=== PATIENT | female | born 1980 | race Caucasian/White ===

== ENCOUNTER 2017-08-15 09:49 | Emergency (ER) | payer MEDICARE, OTHER ==
[2017-08-15 10:03] VITALS: RESP 18
--- NOTE | 2017-08-15 10:19 | ED ---
General Adult HPI - General Chief complaint: Extremity Injury, Lower Stated complaint: left foot pain; lump Time Seen by Provider: 08/15/17 10:08 Source: family, RN notes reviewed Mode of arrival: wheelchair Limitations: language barrier, altered mental status, physical limitation - History of Present Illness Initial comments: Patient's 37-year-old female significant past medical history for Angelman syndrome, presenting with a billing spec for possible injury to the left foot. Adjunct Political Science Instructor provides history as patient is nonverbal. Adjunct Political Science Instructor states that they were getting her change this morning and change in brief and when she stood up the left foot seemed to buckle and she says "ow". Adjunct Political Science Instructor states that she noticed a bump to the left side of the foot unsure if this is related. They deny any other complaints or symptoms. Denies any other change in behavior. He denies any recent fever, nausea vomiting, diarrhea. - Related Data Home Medications Medication Instructions Recorded Confirmed Acetaminophen [Tylenol] 1,000 mg PO Q8H PRN 01/15/15 08/15/17 Calcium Carbonate/Vitamin D3 1 tab PO HS@199901/15/15 08/15/17 [Calcium 600 + Vit D Tablet] Cetirizine HCl 10 mg PO DAILY@0800 01/15/15 08/15/17 Divalproex Sodium [Depakote 500 mg PO TID 01/15/15 08/15/17 Sprinkle] Fluticasone Nasal [place] [Flonase 1 spray EA NOSTRIL DAILY PRN 01/15/15 08/15/17 Nasal [place]] LORazepam [Ativan] 0.5 mg PO TID PRN 01/15/15 08/15/17 Certavite Senior Vitamin 1 tab PO DAILY@0800 02/04/17 08/15/17 Levothyroxine Sodium [Synthroid] 50 mcg PO DAILY@0800 02/04/17 08/15/17 Melatonin 3 mg PO HS@199902/04/17 08/15/17 Norgestimate-Ethinyl Estradiol 1 tab PO HS@199902/04/17 08/15/17 [Tri-Sprintec Tablet] Allergies Allergy/AdvReac Type Severity Reaction Status Date / Time pets Allergy Mild Unknown Uncoded 08/15/17 10:03 Review of Systems ROS Statement: Those systems with pertinent positive or pertinent negative responses have been documented in the HPI. ROS Other: All systems not noted in ROS Statement are negative. Past Medical History Past Medical History: Seizure Disorder Additional Past Medical History / Comment(s): excessive salivation,Angelman Syndrome-petit mal seizures last seizure approx 5 yrs ago-special needs, nonverbal,ambulatory,steroids w/in 3 mos,scoliosis History of Any Multi-Drug Resistant Organisms: None Reported Past Surgical History: Back Surgery Additional Past Surgical History / Comment(s): 2 rods in back,wisdom teeth Past Anesthesia/Blood Transfusion Reactions: No Reported Reaction Past Psychological History: Bipolar Smoking Status: Never smoker Past Alcohol Use History: None Reported Past Drug Use History: None Reported - Past Family History Father Family Medical History: Myocardial Infarction ([place]), Osteoarthritis (OA) Additional Family Medical History / Comment(s): [place] X2,HEART STENTS Mother Additional Family Medical History / Comment(s): SCOLIOSIS General Exam - General Exam Comments Initial Comments: General: The patient is awake and alert, in no distress, and does not appear acutely ill. Neck: The neck is supple, there is no tenderness or JVD. Musculoskeletal: Normal appearance of left foot no obvious deformity. Patient shows full range of motion. Pedal pulses 2+ bilaterally. No specific bony tenderness on exam. Skin: Skin is warm and dry and no rashes or lesions are noted. Limitations: language barrier, altered mental status, physical limitation Course Vital Signs 08/15/17 09:57 Temperature 97.6 F Pulse Rate 86 Respiratory 18 Rate Blood Pressure 100/73 O2 Sat by Pulse 97 Oximetry Medical Decision Making - Medical Decision Making Patient's x-ray of the left foot reviewed and does show a periosteal reaction of the proximal second metatarsal most common related to stress reaction/ incomplete stress fracture. MRI could be performed for further evaluation and a nonemergent basis as read by radiologist . Case discussed in detail with attending physician Dr. Gibson. Patient able to bear weight here in emergency room. Did discuss these findings with caregiver at bedside and advised to follow-up with the family doctor over the next 2 days. Advised to use Sebastián wrap during the day with ibuprofen for pain.. Disposition Clinical Impression: Foot pain Disposition: HOME SELF-CARE Condition: Good Instructions: Foot Sprain (ED) Additional Instructions: Please follow-up with family physician of days. Please use Sebastián wrap during the day. Please use ibuprofen for pain as needed. Please return to emergency room if the symptoms increase or worsen or for any other concerns. Is patient prescribed a controlled substance at d/c from ED?: No Referrals: Surjit Centeno MD [Primary Care Provider] - 1-2 days Time of Disposition: 11:39
--- NOTE | 2017-08-15 11:01 | XR ---
EXAMINATION TYPE: XR foot complete LT DATE OF EXAM: 08/15/2017 CLINICAL HISTORY: Left foot pain TECHNIQUE: Frontal, lateral, and oblique images of the left foot are obtained. COMPARISON: None FINDINGS: There is no U dislocation evident in the left foot. Periosteal reaction is noted of the pr oximal diaphysis and metaphysis of the second digit laterally. This typically relates to stress react ion/stress fracture The joint spaces in the left foot appear within normal limits. The overlying sof t tissue appears unremarkable. IMPRESSION: Periosteal reaction of the proximal second metatarsal most commonly related to stress regan ction/incomplete stress fracture. MR could be performed for further evaluation and a nonemergent harleen alexis
[2017-08-15 11:52] VITALS: BP 103/70; PULSE 82; TEMP 97
== END 2017-08-15 11:52 | disposition home or self-care (01) ==
LOC: EC 09:49 → EEVIPCON 09:49 → EC 11:52
DX: M79.672 Pain in left foot (principal); G40.909 Epilepsy, unspecified, not intractable, without status epilepticus; F31.9 Bipolar disorder, unspecified; Z79.899 Other long term (current) drug therapy; Z91.09 Other allergy status, other than to drugs and biological substances
CPT/HCPCS: 99283

== ENCOUNTER 2017-09-04 17:05 | Emergency (ER) | payer MEDICARE, OTHER ==
[2017-09-04 17:35] VITALS: PULSE 62; RESP 20; TEMP 98
--- NOTE | 2017-09-04 19:23 | XR ---
EXAMINATION TYPE: XR pelvis AP view DATE OF EXAM: 09/04/2017 COMPARISON: NONE HISTORY: Hip pain TECHNIQUE: Single view FINDINGS: The pelvic ring is intact. Proximal femurs and hip joints are intact. There is no sign of h ip dysplasia. Sacroiliac joints are intact. IMPRESSION: Negative pelvis exam.
--- NOTE | 2017-09-04 19:24 | XR ---
EXAMINATION TYPE: XR knee limited bilateral DATE OF EXAM: 09/04/2017 COMPARISON: NONE HISTORY: Leg pain TECHNIQUE: 4 views FINDINGS: There is no fracture nor dislocation. Joint spaces are fairly normal. There is no sign of j oint effusion. There is soft tissue swelling anterior to the knee joint on the lateral view. IMPRESSION: Anterior soft tissue swelling. No fracture.
--- NOTE | 2017-09-04 19:53 | ED ---
Extremity Problem HPI - General Chief complaint: Extremity Problem,Nontraumatic Stated complaint: Right Leg Pain Time Seen by Provider: 09/04/17 18:20 Source: family, Caregiver Mode of arrival: wheelchair Limitations: no limitations - History of Present Illness Initial comments: This is a 37-year-old female with Angelman syndrome and past medical history of seizures and previous KENDALL who was brought in today by caretakers from nursing home for rash to the right anterior thigh. History was obtained from caretakers who state that she attends a day program, and today they were in the sun all day at a picnic. When they went to go change her brief when she returned they noticed a rash to the right anterior thigh, and during ambulation they thought she was slightly favoring her left leg but it was hard to tell. He thought it might be related to the rash they saw. So they took her to [facility] around 3:30 PM where she was told to come to the emergency department for possible imaging. The patient arrived via wheelchair is her normal mode of ambulation when she is not at her nursing home where she ambulates on her knees. At arrival her vital signs within normal limits. Her takers deny any change in behavior or mental status, evidence of diaphoresis, or vomiting. Unable to obtain history or review of systems from patient as she is nonverbal due to her Angelman syndrome. - Related Data Home Medications Medication Instructions Recorded Confirmed Acetaminophen [Tylenol] 1,000 mg PO Q8H PRN 01/15/15 08/15/17 Calcium Carbonate/Vitamin D3 1 tab PO HS@199901/15/15 08/15/17 [Calcium 600 + Vit D Tablet] Cetirizine HCl 10 mg PO DAILY@0801/15/15 08/15/17 Divalproex Sodium [Depakote 500 mg PO TID 01/15/15 08/15/17 Sprinkle] Fluticasone Nasal [place] [Flonase 1 spray EA NOSTRIL DAILY PRN 01/15/15 08/15/17 Nasal [place]] LORazepam [Ativan] 0.5 mg PO TID PRN 01/15/15 08/15/17 Certavite Senior Vitamin 1 tab PO DAILY@0802/04/17 08/15/17 Levothyroxine Sodium [Synthroid] 50 mcg PO DAILY@0802/04/17 08/15/17 Melatonin 3 mg PO HS@199902/04/17 08/15/17 Norgestimate-Ethinyl Estradiol 1 tab PO HS@199902/04/17 08/15/17 [Tri-Sprintec Tablet] Allergies Allergy/AdvReac Type Severity Reaction Status Date / Time ibuprofen Allergy Unknown Verified 09/04/17 17:36 lithium Allergy Unknown Verified 09/04/17 17:36 naproxen [From Aleve] Allergy Unknown Verified 09/04/17 17:36 olanzapine [From Zyprexa] Allergy Unknown Verified 09/04/17 17:36 pets Allergy Mild Unknown Uncoded 09/04/17 17:35 Review of Systems ROS Statement: Those systems with pertinent positive or pertinent negative responses have been documented in the HPI. ROS Other: All systems not noted in ROS Statement are negative. Past Medical History Past Medical History: Seizure Disorder Additional Past Medical History / Comment(s): excessive salivation,Angelman Syndrome-petit mal seizures last seizure approx 5 yrs ago-special needs, nonverbal,ambulatory,steroids w/in 3 mos,scoliosis History of Any Multi-Drug Resistant Organisms: None Reported Past Surgical History: Back Surgery Additional Past Surgical History / Comment(s): 2 rods in back,wisdom teeth Past Anesthesia/Blood Transfusion Reactions: No Reported Reaction Past Psychological History: Bipolar Smoking Status: Never smoker Past Alcohol Use History: None Reported Past Drug Use History: None Reported - Past Family History Father Family Medical History: Myocardial Infarction ([place]), Osteoarthritis (OA) Additional Family Medical History / Comment(s): [place] X2,HEART STENTS Mother Additional Family Medical History / Comment(s): SCOLIOSIS General Exam Limitations: no limitations Course Vital Signs 09/04/17 17:30 Temperature 98.0 F Pulse Rate 62 Respiratory 20 Rate O2 Sat by Pulse 97 Oximetry Medical Decision Making - Medical Decision Making This is a 37-year-old female with Angelman syndrome and past medical history of seizures and previous KENDALL who was brought in today by caretakers from nursing home for rash to the right anterior thigh. History was obtained from caretakers who state that she attends a day program, and today they were in the sun all day at a picnic. When they went to go change her brief when she returned they noticed a rash to the right anterior thigh, and during ambulation they thought she was slightly favoring her left leg but it was hard to tell. He thought it might be related to the rash they saw. So they took her to [facility] around 3:30 PM where she was told to come to the emergency department for possible imaging. The patient arrived via wheelchair is her normal mode of ambulation when she is not at her nursing home where she ambulates on her knees. At arrival her vital signs within normal limits. Her takers deny any change in behavior or mental status, evidence of diaphoresis, or vomiting. Unable to obtain history or review of systems from patient as she is nonverbal due to her Angelman syndrome. Patient was able to ambulate from the wheelchair to the bed putting weight on both feet without signs of discomfort. Physical examination there is a large reticular rash to the right anterior thigh, the rash is not warm to touch. There is no evidence of vesicles or draining. She is afebrile. There is reddening of the skin of the upper extremities bilaterally this appears to be sun burn-mentioned that she had been the sun all day. Physical examination of the hips knees and ankles revealed no evidence of erythema, swelling or obvious deformities of the overlying skin, patient did not show signs of pain to palpation of the hips knees and ankles bilaterally. Patient had full range of motion of hips knees and ankles bilaterally. Patient was able to bear weight and ambulate from the wheel chair to bed. X-rays of the pelvis and knees bilaterally were obtained due to caretakers mentioning that they thought she was slightly favoring the left leg-imaging returned without abnormalities. Patient was seen by attending Dr. Bates. The daughter is appropriate given the patient's stable condition she follow-up with her primary care 1-2 days if symptoms don't resolve and return to emergency department if they worsen. Caretakers agree with this plan and patient was discharged in stable condition, ambulating without difficulty stretcher to wheelchair upon discharge. Disposition Clinical Impression: Rash and nonspecific skin eruption Narrative: Please follow-up with family doctor in the next 2 days of symptoms have not improved. Please return to emergency room if the symptoms increase or worsen or for any other concerns. Disposition: HOME SELF-CARE Condition: Good Instructions: Acute Rash (ED) Additional Instructions: Please follow-up with family doctor in the next 2 days of symptoms have not improved. Please return to emergency room if the symptoms increase or worsen or for any other concerns. Is patient prescribed a controlled substance at d/c from ED?: No Referrals: Surjit Centeno MD [Primary Care Provider] - 1-2 days
== END 2017-09-04 20:07 | disposition home or self-care (01) ==
LOC: EC 17:05
DX: R21 Rash and other nonspecific skin eruption (principal); G40.409 Other generalized epilepsy and epileptic syndromes, not intractable, without status epilepticus; F31.9 Bipolar disorder, unspecified; Z79.899 Other long term (current) drug therapy; Z79.3 Long term (current) use of hormonal contraceptives; Z88.6 Allergy status to analgesic agent; Z91.09 Other allergy status, other than to drugs and biological substances; Z88.8 Allergy status to other drugs, medicaments and biological substances
CPT/HCPCS: 72170; 99283

== ENCOUNTER 2019-07-22 20:31 | Emergency (ER) | payer MEDICARE, OTHER ==
[2019-07-22 20:38] VITALS: TEMP 97.9
--- NOTE | 2019-07-22 21:57 | ED ---
Seizure HPI - General Chief Complaint: Seizure Stated Complaint: seizure Time Seen by Provider: 07/22/19 21:32 Source: EMS, Caregiver Mode of arrival: EMS Limitations: altered mental status, physical limitation - History of Present Illness Initial Comments: Patient is a 39-year-old female with history of epilepsy presenting to the emergency department with a chief complaint of a seizure. Patient presents to the ED via EMS with caregiver. Patient is nonverbal and lives in assisted living facility. Caregiver states the patient typically shakes her head back and forth at baseline, however today she was shaking the morning usual and then also she went "stiff". They had to bring her down to the ground and afterwards she felt tired. Caregiver stated the patient possibly suffered a second seizure with similar symptoms. Patient did have fatigue afterward. They're unsure whether the patient urinated herself. There is no signs of tonic-clonic activity. Caregiver states her last seizure was approximately 6 years ago. She does see a neurologist but has not seen one recently. Patient has been eating without issue but she does have poor liquid intake. - Related Data Home Medications Medication Instructions Recorded Confirmed Acetaminophen [Tylenol] 1,000 mg PO Q8H PRN 01/15/15 08/15/17 Calcium Carbonate/Vitamin D3 1 tab PO HS@199901/15/15 08/15/17 [Calcium 600 + Vit D Tablet] Cetirizine HCl 10 mg PO DAILY@0800 01/15/15 08/15/17 Divalproex Sodium [Depakote 500 mg PO TID 01/15/15 08/15/17 Sprinkle] Fluticasone Nasal [place] [Flonase 1 spray EA NOSTRIL DAILY PRN 01/15/15 08/15/17 Nasal [place]] LORazepam [Ativan] 0.5 mg PO TID PRN 01/15/15 08/15/17 Certavite Senior Vitamin 1 tab PO DAILY@0800 02/04/17 08/15/17 Levothyroxine Sodium [Synthroid] 50 mcg PO DAILY@0800 02/04/17 08/15/17 Melatonin 3 mg PO HS@199902/04/17 08/15/17 Norgestimate-Ethinyl Estradiol 1 tab PO HS@199902/04/17 08/15/17 [Tri-Sprintec Tablet] Allergies Allergy/AdvReac Type Severity Reaction Status Date / Time ibuprofen Allergy Unknown Verified 07/22/19 20:37 lithium Allergy Unknown Verified 07/22/19 20:37 naproxen [From Aleve] Allergy Unknown Verified 07/22/19 20:37 olanzapine [From Zyprexa] Allergy Unknown Verified 07/22/19 20:37 pets Allergy Mild Unknown Uncoded 07/22/19 20:37 Review of Systems ROS Statement: Those systems with pertinent positive or pertinent negative responses have been documented in the HPI. ROS Other: All systems not noted in ROS Statement are negative. Past Medical History Past Medical History: Seizure Disorder Additional Past Medical History / Comment(s): excessive salivation,Angelman Syndrome-petit mal seizures last seizure approx 5 yrs ago-special needs,nonverbal,ambulatory,steroids w/in 3 mos,scoliosis History of Any Multi-Drug Resistant Organisms: None Reported Past Surgical History: Back Surgery Additional Past Surgical History / Comment(s): 2 rods in back,wisdom teeth Past Anesthesia/Blood Transfusion Reactions: No Reported Reaction Past Psychological History: Bipolar Smoking Status: Never smoker Past Alcohol Use History: None Reported Past Drug Use History: None Reported - Past Family History Father Family Medical History: Myocardial Infarction ([place]), Osteoarthritis (OA) Additional Family Medical History / Comment(s): [place] X2,HEART STENTS Mother Additional Family Medical History / Comment(s): SCOLIOSIS General Exam Limitations: altered mental status, physical limitation General appearance: alert, in no apparent distress Head exam: Present: atraumatic, normocephalic, normal inspection Eye exam: Present: normal appearance, PERRL, EOMI Pupils: Present: normal accommodation ENT exam: Present: normal exam, normal oropharynx (no tongue trauma ), mucous membranes moist Neck exam: Present: normal inspection, full ROM Respiratory exam: Present: normal lung sounds bilaterally Cardiovascular Exam: Present: regular rate, normal rhythm, normal heart sounds Extremities exam: Present: normal inspection, full ROM Back exam: Present: normal inspection, full ROM Neurological exam: Present: alert Psychiatric exam: Present: other (Nonverbal) Skin exam: Present: warm, dry, intact, normal color Course Vital Signs 07/22/19 07/22/19 07/22/19 20:33 22:30 23:00 Temperature 97.9 F Pulse Rate 78 88 78 Respiratory 18 20 16 Rate Blood Pressure 107/81 110/56 111/65 O2 Sat by Pulse 95 99 98 Oximetry Medical Decision Making - Medical Decision Making Patient is a 39-year-old female presents emergency Department with a chief complaint of possible seizure. Patient is nonverbal brought to the ED via EMS. She is accompanied by her caregiver. Patient currently takes Depakote for her epilepsy. She has not had a seizure in about 6 years according to the caregiver. CBC and CMP are unremarkable aside from elevated BUN levels which I suspect is secondary to dehydration. She does have dry mucous membranes and according to the caregiver, the patient does have poor liquid intake. Patient was given a liter of fluids.. Lactate is within normal limits. EKG shows normal sinus rhythm with no ST changes. Depakote levels are within normal limits. I have low suspicion that this was a true seizure. No signs of oral trauma to the lateral aspect of the tongue. CT of the brain is unremarkable. Return parameters were thoroughly discussed with caregiver is understanding and agreeable. She was advised to follow-up with the primary care. Case discussed with physician. - Lab Data Result diagrams: 07/22/19 22:20 07/22/19 22:20 Lab Results 07/22/19 07/22/19 07/22/19 Range/Units 22:20 22:20 22:20 WBC 5.9 (3.8-10.6) k/uL RBC 4.26 (3.80-5.40) m/uL Hgb 13.4 (11.4-16.0) gm/dL Hct 42.5 (34.0-46.0) % MCV 99.9 (80.0-100.0) fL MCH 31.5 (25.0-35.0) pg MCHC 31.5 (31.0-37.0) g/dL RDW 12.8 (11.5-15.5) % Plt Count 168 (150-450) k/uL Neutrophils % 41 % Lymphocytes % 47 % Monocytes % 6 % Eosinophils % 4 % Basophils % 0 % Neutrophils # 2.4 (1.3-7.7) k/uL Lymphocytes # 2.8 (1.0-4.8) k/uL Monocytes # 0.4 (0-1.0) k/uL Eosinophils # 0.2 (0-0.7) k/uL Basophils # 0.0 (0-0.2) k/uL Sodium 134 L (137-145) mmol/L Potassium 4.6 (3.5-5.1) mmol/L Chloride 100 (98-107) mmol/L Carbon Dioxide 30 (22-30) mmol/L Anion Gap 4 mmol/L BUN 30 H (7-17) mg/dL Creatinine 0.70 (0.52-1.04) mg/dL Est GFR (CKD-EPI)AfAm >90 (>60 ml/min/1.73 sqM) Est GFR (CKD-EPI)NonAf >90 (>60 ml/min/1.73 sqM) Glucose 104 H (74-99) mg/dL POC Glucose (mg/dL) (75-99) mg/dL POC Glu Marketing Content Specialist ID Plasma Lactic Acid Alvaro 1.1 (0.7-2.0) mmol/L Calcium 9.1 (8.4-10.2) mg/dL Magnesium 1.7 (1.6-2.3) mg/dL Total Bilirubin 0.5 (0.2-1.3) mg/dL AST 37 H (14-36) U/L ALT 17 (4-34) U/L Alkaline Phosphatase 43 (38-126) U/L Total Protein 6.3 (6.3-8.2) g/dL Albumin 3.2 L (3.5-5.0) g/dL Valproic Acid ug/mL [place] mmol/L 07/22/19 07/22/19 07/22/19 Range/Units 22:20 22:20 22:25 WBC (3.8-10.6) k/uL RBC (3.80-5.40) m/uL Hgb (11.4-16.0) gm/dL Hct (34.0-46.0) % MCV (80.0-100.0) fL MCH (25.0-35.0) pg MCHC (31.0-37.0) g/dL RDW (11.5-15.5) % Plt Count (150-450) k/uL Neutrophils % % Lymphocytes % % Monocytes % % Eosinophils % % Basophils % % Neutrophils # (1.3-7.7) k/uL Lymphocytes # (1.0-4.8) k/uL Monocytes # (0-1.0) k/uL Eosinophils # (0-0.7) k/uL Basophils # (0-0.2) k/uL Sodium (137-145) mmol/L Potassium (3.5-5.1) mmol/L Chloride (98-107) mmol/L Carbon Dioxide (22-30) mmol/L Anion Gap mmol/L BUN (7-17) mg/dL Creatinine (0.52-1.04) mg/dL Est GFR (CKD-EPI)AfAm (>60 ml/min/1.73 sqM) Est GFR (CKD-EPI)NonAf (>60 ml/min/1.73 sqM) Glucose (74-99) mg/dL POC Glucose (mg/dL) 96 (75-99) mg/dL POC Glu Marketing Content Specialist ID Abdon Mustafa Plasma Lactic Acid Alvaro (0.7-2.0) mmol/L Calcium (8.4-10.2) mg/dL Magnesium (1.6-2.3) mg/dL Total Bilirubin (0.2-1.3) mg/dL AST (14-36) U/L ALT (4-34) U/L Alkaline Phosphatase (38-126) U/L Total Protein (6.3-8.2) g/dL Albumin (3.5-5.0) g/dL Valproic Acid 104.8 ug/mL [place] <0.2 mmol/L Disposition Clinical Impression: Observed seizure-like activity Disposition: HOME SELF-CARE Condition: Good Instructions (If sedation given, give patient instructions): Recurrent Seizures in Adults (ED) Additional Instructions: Follow-up with a neurologist. Return to emergency department if symptoms worsen. Is patient prescribed a controlled substance at d/c from ED?: No Referrals: Surjit Centeno MD [Primary Care Provider] - 1-2 days Time of Disposition: 00:24
[2019-07-22 22:26] LABS: Glucose,Whole Blood 96 mg/dL (75-99)
[2019-07-22 22:37] LABS: Basophils % (A) 0 %; Eosinophils # (A) 0.2 k/uL (0-0.7); Eosinophils % (A) 4 %; HCT 42.5 % (34.0-46.0); HGB 13.4 gm/dL (11.4-16.0); Lymphocytes # (A) 2.8 k/uL (1.0-4.8); Lymphocytes % (A) 47 %; MCH 31.5 pg (25.0-35.0); MCHC 31.5 g/dL (31.0-37.0); MCV 99.9 fL (80.0-100.0); Mean Platelet Volume 7.1; Monocytes # (A) 0.4 k/uL (0-1.0); Monocytes % (A) 6 %; Neutrophils # (A) 2.4 k/uL (1.3-7.7); Neutrophils % (A) 41 %; Platelet Count 168 k/uL (150-450); RBC 4.26 m/uL (3.80-5.40); RDW 12.8 % (11.5-15.5); WBC 5.9 k/uL (3.8-10.6)
[2019-07-22 22:44] LABS: ALT 17 U/L (4-34); AST 37 U/L (14-36); African American GFR (CKD) >90 (>60 ml/min/1.73 sqM); Albumin 3.2 g/dL (3.5-5.0); Alkaline Phosphatase 43 U/L (38-126); Anion Gap 4 mmol/L; Blood Urea Nitrogen 30 mg/dL (7-17); Calcium 9.1 mg/dL (8.4-10.2); Carbon Dioxide 30 mmol/L (22-30); Chloride 100 mmol/L (98-107); Glucose 104 mg/dL (74-99); Magnesium 1.7 mg/dL (1.6-2.3); Non-African American GFR(CKD) >90 (>60 ml/min/1.73 sqM); Potassium 4.6 mmol/L (3.5-5.1); Sodium 134 mmol/L (137-145); Total Bilirubin 0.5 mg/dL (0.2-1.3); Total Protein 6.3 g/dL (6.3-8.2)
--- NOTE | 2019-07-22 22:45 | CT ---
EXAMINATION TYPE: CT brain wo con DATE OF EXAM: 07/22/2019 COMPARISON: 11/04/2011 HISTORY: seizure CT DLP: 1275.4 mGycm Automated exposure control for dose reduction was used. Ventricles are top normal in size. There is no mass effect nor midline shift. There is no sign of int racranial hemorrhage. The calvarium is intact. IMPRESSION: No acute intracranial abnormality. No change.
[2019-07-22] MEDS ORDERED: SODIUM CHLORIDE 0.9% 1,000 ML IV STA (22:57)
[2019-07-23 01:29] VITALS: BP 108/56; PULSE 81; RESP 20
== END 2019-07-23 01:15 | disposition home or self-care (01) ==
LOC: EC 20:31
DX: G40.802 Other epilepsy, not intractable, without status epilepticus (principal); F31.9 Bipolar disorder, unspecified; R79.89 Other specified abnormal findings of blood chemistry; E86.0 Dehydration; Z79.3 Long term (current) use of hormonal contraceptives; Z79.899 Other long term (current) drug therapy; Z88.6 Allergy status to analgesic agent; Z88.8 Allergy status to other drugs, medicaments and biological substances; Z91.048 Other nonmedicinal substance allergy status
CPT/HCPCS: 36415; 70450; 80053; 80164; 80178; 83605; 83735; 85025; 93005; 96360; 99285

== ENCOUNTER 2022-06-07 16:59 | Emergency (ER) | payer MEDICARE, OTHER ==
[2022-06-07 17:15] VITALS: RESP 20; TEMP 97.4
--- NOTE | 2022-06-07 17:29 | ED ---
General Adult HPI - General Chief complaint: ENT Stated complaint: Food Stuck in Throat Time Seen by Provider: 06/07/22 17:00 Source: EMS, RN notes reviewed, old records reviewed, Caregiver Mode of arrival: EMS Limitations: altered mental status - History of Present Illness Initial comments: This is a 42-year-old female who presents to the emergency room via EMS with her caregiver who states that around 4:30 today patient was eating spaghetti O's with meatballs and choked on a meatball. Caregiver states that they tried the Heimlich maneuver but were unable to expel meatball. No loss of consciousness. No apparent respiratory distress at this time. Patient did turn red in color, did not vomit. 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 Patient is nonverbal at baseline. -: hour(s) (1) Location: neck (throat) - Related Data Home Medications Medication Instructions Recorded Confirmed Acetaminophen [Tylenol] 1,000 mg PO Q8H PRN 01/15/15 08/15/17 Calcium Carbonate/Vitamin D3 1 tab PO HS@199901/15/15 08/15/17 [Calcium 600 + Vit D Tablet] Cetirizine HCl 10 mg PO DAILY@0800 01/15/15 08/15/17 Divalproex Sodium [Depakote 500 mg PO TID 01/15/15 08/15/17 Sprinkle] Fluticasone Nasal [place] [Flonase 1 spray EA NOSTRIL DAILY PRN 01/15/15 08/15/17 Nasal [place]] LORazepam [Ativan] 0.5 mg PO TID PRN 01/15/15 08/15/17 Certavite Senior Vitamin 1 tab PO DAILY@0800 02/04/17 08/15/17 Levothyroxine Sodium [Synthroid] 50 mcg PO DAILY@79902/04/17 08/15/17 Melatonin 3 mg PO HS@199902/04/17 08/15/17 norgestimate-ethinyl estradioL 1 tab PO HS@199902/04/17 08/15/17 [Tri-Sprintec Tablet] Allergies Allergy/AdvReac Type Severity Reaction Status Date / Time ibuprofen Allergy Unknown Verified 07/22/19 20:37 lithium Allergy Unknown Verified 07/22/19 20:37 naproxen [From Aleve] Allergy Unknown Verified 07/22/19 20:37 olanzapine [From Zyprexa] Allergy Unknown Verified 07/22/19 20:37 pets Allergy Mild Unknown Uncoded 07/22/19 20:37 Review of Systems ROS Statement: Those systems with pertinent positive or pertinent negative responses have been documented in the HPI. ROS Other: All systems not noted in ROS Statement are negative. Past Medical History Past Medical History: Unable to Obtain, Seizure Disorder Additional Past Medical History / Comment(s): excessive salivation,Angelman Syndrome-petit mal seizures last seizure approx 5 yrs ago-special needs,nonverbal,ambulatory,steroids w/in 3 mos,scoliosis History of Any Multi-Drug Resistant Organisms: None Reported Past Surgical History: Back Surgery Additional Past Surgical History / Comment(s): 2 rods in back,wisdom teeth Past Anesthesia/Blood Transfusion Reactions: No Reported Reaction Past Psychological History: Bipolar Past Alcohol Use History: None Reported Past Drug Use History: None Reported - Past Family History Father Family Medical History: Myocardial Infarction (RI), Osteoarthritis (OA) Additional Family Medical History / Comment(s): RI X2,HEART STENTS Mother Additional Family Medical History / Comment(s): SCOLIOSIS General Exam Limitations: altered mental status General appearance: alert, in no apparent distress Head exam: Present: atraumatic Eye exam: Absent: scleral icterus, conjunctival injection, periorbital swelling ENT exam: Present: normal oropharynx, mucous membranes moist Neck exam: Absent: tenderness, meningismus Respiratory exam: Present: normal lung sounds bilaterally. Absent: respiratory distress, accessory muscle use Cardiovascular Exam: Present: regular rate GI/Abdominal exam: Present: soft. Absent: distended, tenderness, rigid Neurological exam: Present: alert Psychiatric exam: Present: normal affect, normal mood Skin exam: Present: warm, dry, normal color. Absent: cyanosis, diaphoretic, petechiae, pallor Course Vital Signs 06/07/22 17:10 Temperature 97.4 F L Pulse Rate 78 Respiratory 20 Rate Blood Pressure 127/88 O2 Sat by Pulse 96 Oximetry Medical Decision Making - Medical Decision Making Chest x-ray interpreted by me shows hardware rods for scoliosis. No focal consolidation. Radiologist interpretation no acute cardiopulmonary process. X-ray soft tissue neck interpreted by me shows no evidence of foreign body. Radiologist interpretation airway is widely patent. No radiopaque foreign body. Epiglottis aryepiglottic folds are normal. Retropharyngeal soft tissues are normal. No swelling of the tonsils. Patient back to her normal baseline per caregiver. Drinking water without difficulty. Patient discharged home with caregiver and directed to return to the emergency room with any new or concerning symptoms including difficulty breathing, persistent cough or fevers. Caregiver is agreeable to this plan of care. Case discussed with Dr Bates. Was pt. sent in by a medical professional or institution ([facility]IS ANGEL Hsieh, GRAV[employer] SET UP OPERATOR, urgent care, hospital, or custodial...) When possible be specific @ -No Did you speak to anyone other than the patient for history (EMS, parent, family, police, friend...)? What history was obtained from this source @ -Patient's caregiver at bedside Did you review nursing and triage notes (agree or disagree)? Why? @ -I reviewed and agree with nursing and triage notes Were old charts reviewed (outside hosp., previous admission, EMS record, old EKG, old radiological studies, urgent care reports/EKG's, custodial records)? Report findings @ -No old charts were reviewed Differential Diagnosis (chest pain, altered mental status, abdominal pain women, abdominal pain men, vaginal bleeding, weakness, fever, dyspnea, syncope, headache, dizziness, GI bleed, back pain, seizure, CVA, palpatations, mental health, musculoskeletal)? @ -Airway obstruction, foreign body ingestion, esophageal stricture, aspiration pneumonia, this is not all inclusive list EKG interpreted by me (3pts min.). @ -n/a X-rays interpreted by me (1pt min.). @ -yes as above CT interpreted by me (1pt min.). @ -None done U/S interpreted by me (1pt. min.). @ -None done What testing was considered but not performed or refused? (CT, X-rays, U/S, labs)? Why? @ -None What meds were considered but not given or refused? Why? @ -None Did you discuss the management of the patient with other professionals (professionals i.e. [facility] ANGEL Hsieh, GRAVURE PR[employer] SET UP OPERATOR, lab, RT, psych nurse, outreach and education social worker, instructional supervisor, teacher, armored vehicle officer, transplant case manager)? Give summary @ -No Was smoking cessation discussed for >3mins.? @ -No Was critical care preformed (if so, how long)? @ -No Were there social determinants of health that impacted care today? How? (Homelessness, low income, unemployed, alcoholism, drug addiction, transportation, low edu. Level, literacy, decrease access to med. care, long term, rehab)? @ -No Was there de-escalation of care discussed even if they declined (Discuss DNR or withdrawal of care, Hospice)? DNR status @ -No What co-morbidities impacted this encounter? (DM, HTN, Smoking, COPD, CAD, Cancer, CVA, ARF, Chemo, Hep., AIDS, mental health diagnosis, sleep apnea, morbid obesity)? @ -Angelman's syndrome, seizure disorder, scoliosis, nonverbal Was patient admitted / discharged? Hospital course, mention meds given and route, prescriptions, significant lab abnormalities, going to OR and other pertinent info. @ -Discharged Undiagnosed new problem with uncertain prognosis? @ -No Drug Therapy requiring intensive monitoring for toxicity (Heparin, Nitro, Insulin, Cardizem)? @ -No Were any procedures done? @ -No Diagnosis/symptom? @ -Choking episode resolved Acute, or Chronic, or Acute on Chronic? @ -Acute Uncomplicated (without systemic symptoms) or Complicated (systemic symptoms)? @ -Uncomplicated Side effects of treatment? @ -No Exacerbation, Progression, or Severe Exacerbation? @ -No Poses a threat to life or bodily function? How? (Chest pain, [place], [place], pneumonia, PE, COPD, DKA, ARF, appy, cholecystitis, CVA, Diverticulitis, Homicidal, Suicidal, threat to staff... and all critical care pts) @ -No Disposition Clinical Impression: Choking due to food (regurgitated) Disposition: HOME SELF-CARE Condition: Good Instructions (If sedation given, give patient instructions): Performing the Heimlich Maneuver (ED), Food Impaction (ED) Additional Instructions: Encourage patient to thoroughly chew her food. Return to the emergency room with any new or concerning symptoms including difficulty breathing, fevers or persistent cough. Follow up with her primary care doctor next week. Is patient prescribed a controlled substance at d/c from ED?: No Referrals: Surjit Centeno MD [REFERRING] - 1-2 days Time of Disposition: 18:07
--- NOTE | 2022-06-07 17:51 | XR ---
EXAMINATION TYPE: XR chest 2V DATE OF EXAM: 06/07/2022 COMPARISON: 02/04/2017 HISTORY: Altered mental status TECHNIQUE: Frontal and lateral views of the chest are obtained. FINDINGS: There is no focal air space opacity, pleural effusion, or pneumothorax seen. The cardiac silhouette size is within normal limits. There are Hendricks rods 4 severe dextroscoliosis of the th oracolumbar spine. IMPRESSION: No acute cardiopulmonary process.
--- NOTE | 2022-06-07 17:53 | XR ---
Soft tissue neck. HISTORY: Foreign body. COMPARISON: None. AP and lateral views of the soft tissues neck obtained. FINDINGS: The airway is widely patent. There is no radiopaque foreign body. The epiglottis and aryepiglottic folds are normal. The retropharyngeal soft tissues are normal. There is no swelling of the tonsils. The osseous structures are intact. There is kyphosis of the cervical spine.
[2022-06-07 18:38] VITALS: BP 111/72; PULSE 77
== END 2022-06-07 18:38 | disposition home or self-care (01) ==
LOC: EC 16:59
DX: R11.10 Vomiting, unspecified (principal); G40.909 Epilepsy, unspecified, not intractable, without status epilepticus; Z79.899 Other long term (current) drug therapy; Z88.6 Allergy status to analgesic agent; Z88.8 Allergy status to other drugs, medicaments and biological substances; Z91.048 Other nonmedicinal substance allergy status
CPT/HCPCS: 70360; 71046; 99284